=== PATIENT | male | born 1970 | race African-American/Black ===

== ENCOUNTER → 2016-08-04 | Outpatient (CLI) | payer MEDICARE, OTHER ==
[~2016-08-04] MED LIST: AMANTADINE100 M1; BACTRIM DS TABL1 TA1 PO; METFORMIN; TOPAMAX; ZOLOFT
--- NOTE | ~2016-08-04 | CR63 ---
[facility] A Service of [facility] RADIOLOGY TEXT RESULTS PATIENT: SONIA AKERS LOCATION: [facility] : 72 UNIT #: [id number] AGE: [address]: Judah Bell MD SEX: M ORDER DR: [id number] [facility] [address] [place], [place] [address] [id number] O MR#: [id number] Acc #: [id number] NAME: SONIA AKERS : 1970 SEX: M STUDY DATE/TIME: 08/04/2016 17:34 UNIT: [facility] ROOM: STUDY DESCRIPTION: CR Chest 2 View Attending Physician: Judah Bell M.D. Referring Physician: Judah Bell M.D. Ordering Physician: Judah Bell M.D. Primary Care Physician: Judah Bell M.D. MEDICAL IMAGING REPORT This report is preliminary unless electronic signature is present EXAM Chest PA and lateral, 08/04/2016 HISTORY Cough for 2 weeks. Benign essential hypertension and diabetes. FINDINGS PA and lateral examination of the chest upright shows a good expansion of the parenchyma with a normal distribution of the pulmonary vascularity. There is no indication of congestion, effusion, infiltrate, tumor, or nodular density. The pleural reflections and diaphragmatic contours are normal. The cardiac silhouette and mediastinal anatomy is within normal limits. IMPRESSION Normal chest. Dictated by... Masoud Lancaster M.D. THIS IS AN ELECTRONICALLY VERIFIED REPORT Masoud Lancaster M.D. at 08/05/2016 2:27 PM KRT/monica TD: 08/04/2016 22:32 JOB #: [id number] MEDICAL IMAGING REPORT Page 1 of 1 COPY
== END | disposition home or self-care (01) ==
LOC: CRAD 17:08
DX: R05 Cough (principal); I10 Essential (primary) hypertension; E11.9 Type 2 diabetes mellitus without complications
CPT/HCPCS: 71020